=== PATIENT | female | born 1990 | race Caucasian/White ===

== ENCOUNTER 2016-11-23 04:27 | Emergency (ER) | payer MEDICAID ==
[~2016-11-23] VITALS: Ht 162.6 cm; Wt 66.2 kg
[~2016-11-23 04:27] MED LIST: BUTA1CAP30 PO; INDO25CA; OXYC-223
[2016-11-23] MEDS ORDERED: KETOROLAC 30 MG/1 ML ONE ×2 (04:50→04:57)
[2016-11-23] MEDS ORDERED: CEFTRIAXONE 1,000 MG ONE (04:51)
[2016-11-23] MEDS ORDERED: KETOROLAC 30 MG/1 ML IM ONE (05:00)
[2016-11-23] MEDS ORDERED: CEFTRIAXONE 1,000 MG IM ONE (05:00)
[2016-11-23 05:22] VITALS: BP 106/62
== END 2016-11-23 05:25 | disposition home or self-care (01) ==
LOC: ED 05:09
DX: H65.02 Acute serous otitis media, left ear (principal)
CPT/HCPCS: 96372; 99284; J0696; J1885

== ENCOUNTER 2017-11-04 17:44 | Emergency (ER) | payer MEDICAID ==
[~2017-11-04] VITALS: Ht 154.9 cm; Wt 61.7 kg
[~2017-11-04 17:44] MED LIST changes: -OXYC-223; +OXYC-306
[2017-11-04 18:16] VITALS: BP 114/70
[2017-11-04] MEDS ORDERED: DEXAMETHASONE 4 MG TABLET ONE (18:29)
[2017-11-04] MEDS ORDERED: DEXAMETHASONE 4 MG TABLET PO ONE (18:30)
== END 2017-11-04 19:22 | disposition home or self-care (01) ==
LOC: ED 19:00
DX: H92.03 Otalgia, bilateral (principal); R05 Cough
CPT/HCPCS: 71046; 87081; 87880; 99285

== ENCOUNTER 2017-12-21 02:17 | Emergency (ER) | payer MEDICAID ==
[~2017-12-21] VITALS: Ht 154.9 cm; Wt 64.1 kg
[2017-12-21 02:19] VITALS: BP 106/54
[2017-12-21] MEDS ORDERED: LIDOCAINE-MPF 2% ,5ML ONE (02:58)
[2017-12-21] MEDS ORDERED: LIDOCAINE 1%, 10ML INFIL ONE (03:00)
== END 2017-12-21 03:29 | disposition home or self-care (01) ==
LOC: ED 02:36
DX: K08.89 Other specified disorders of teeth and supporting structures (principal); G43.909 Migraine, unspecified, not intractable, without status migrainosus
CPT/HCPCS: 64400; 99284

== ENCOUNTER 2018-03-08 22:41 | Emergency (ER) | payer MEDICAID ==
[~2018-03-08] VITALS: Ht 160 cm; Wt 63.0 kg
[~2018-03-08 22:41] MED LIST changes: -INDO25CA; +INDO25CA5
[2018-03-08] MEDS ORDERED: METOCLOPRAMIDE 10MG TABLET ONE (23:16)
[2018-03-08] MEDS ORDERED: DIPHENHYDRAMINE 25 MG CAPSULE ONE (23:17)
[2018-03-08] MEDS ORDERED: METOCLOPRAMIDE 10MG TABLET PO ONE (23:30)
[2018-03-08] MEDS ORDERED: DIPHENHYDRAMINE 25 MG CAPSULE PO ONE (23:30)
[2018-03-09 00:05] VITALS: BP 134/76
== END 2018-03-09 00:36 | disposition home or self-care (01) ==
LOC: ED 23:31
DX: O26.891 Other specified pregnancy related conditions, first trimester (principal); G43.019 Migraine without aura, intractable, without status migrainosus; R10.84 Generalized abdominal pain; Z3A.01 Less than 8 weeks gestation of pregnancy
CPT/HCPCS: 99283; Q0163

== ENCOUNTER 2018-06-22 19:27 | Emergency (ER) | payer MEDICAID ==
[~2018-06-22] VITALS: Ht 157.5 cm; Wt 71.4 kg
[2018-06-22 19:34] VITALS: BP 109/70
[2018-06-22] MEDS ORDERED: KETOROLAC 30 MG/1 ML IM ONE (21:00)
[2018-06-22] MEDS ORDERED: KETOROLAC 30 MG/1 ML ONE (21:09)
--- NOTE | 2018-06-23 10:15 | NUR ---
late note 2100- discussed with pharmacy and providers regarding nsaid use in . was instructed by pharmacy and providers that a single use of tordal would not cause harm and they really advise witholding past 30 weeks of . late note- 214 pt found crying in room stating that the medication did not work. suggested going to provider to let them know. patient did not want provider notified and just wanted to go home. provider made aware of this and no new orders were given.
== END 2018-06-22 21:59 | disposition home or self-care (01) ==
LOC: ED 21:47
DX: O26.892 Other specified pregnancy related conditions, second trimester (principal); G44.209 Tension-type headache, unspecified, not intractable; Z3A.22 22 weeks gestation of pregnancy
CPT/HCPCS: 96372; 99283; J1885

== ENCOUNTER 2019-07-17 12:05 | Emergency (ER) | payer MEDICAID ==
[~2019-07-17] VITALS: Ht 160 cm; Wt 72.4 kg
[~2019-07-17 12:05] MED LIST changes: +INDO25CA22; -INDO25CA5
[2019-07-17 12:08] VITALS: BP 128/86
--- NOTE | 2019-07-17 12:14 | NUR ---
PT AMBULATORY TO ROOM 7 W/ C/O WISDOM TOOTH ERUPTION TO ALL FOUR SIDES AND STATES ONE OF THE WISOM TEETH IS HITTING THE TOOTH NEXT TO IT CAUSING EXTREME PAIN. PT STATES HER DENTIST CANNOT SEE HER UNTIL AUG 15 AND HER ORAL SURGEON IS WORKING ON INSURANCE COVERAGE AND PT CANNOT MAKE APPT. PT RESTING ON GURNEY. CHRISTIAN.
== END 2019-07-17 12:43 | disposition home or self-care (01) ==
LOC: ED 12:30
DX: K08.89 Other specified disorders of teeth and supporting structures (principal); G89.29 Other chronic pain
CPT/HCPCS: 99283

== ENCOUNTER 2019-10-28 12:06 | Emergency (ER) | payer MEDICAID ==
[~2019-10-28] VITALS: Ht 162.6 cm; Wt 79.0 kg
--- NOTE | 2019-10-28 12:54 | NUR ---
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
--- NOTE | 2019-10-28 13:04 | NUR ---
PT BROUGHT BACK FROM TRIAGE WITH CHIEF COMPLAINT OF LEFT DENTAL PAIN FROM ORAL SURGERY TUESDAY.
--- NOTE | 2019-10-28 13:32 | NUR ---
MEGGAN SEATING CAPTAIN AT BEDSIDE TO DISCUSS POC
[2019-10-28 13:37] VITALS: BP 108/63
== END 2019-10-28 13:46 | disposition home or self-care (01) ==
LOC: ED 13:30
DX: K08.89 Other specified disorders of teeth and supporting structures (principal)
CPT/HCPCS: 99283